=== PATIENT | male | born 1945 | race Two or more races ===

== ENCOUNTER 2020-05-21 14:39 | Outpatient (CLI) | payer OTHER | END 2020-05-21 14:50 | disposition home or self-care (01) | LOC: MRI 14:39 | PROVIDERS: ATTEND Physical Medicine & Rehabilitation | DX: M51.36 Other intervertebral disc degeneration, lumbar region (principal); M54.5 Low back pain | CPT/HCPCS: 72148 ==

== ENCOUNTER 2025-03-04 08:04 | Outpatient (CLI) | payer OTHER | END 2025-03-04 08:07 | disposition home or self-care (01) | LOC: TOM 08:04 | PROVIDERS: ATTEND Internal Medicine | DX: K42.9 Umbilical hernia without obstruction or gangrene (principal) | CPT/HCPCS: 74177; Q9965 ==